=== PATIENT | female | born 1980 | race American Indian/Alaskan Native ===

== ENCOUNTER 2022-03-27 21:07 | Emergency (ER) | payer OTHER ==
[2022-03-27] MEDS ORDERED: IBUPROFEN 600 MG TAB PO ONE (23:21)
[2022-03-27] MEDS ORDERED: ACETAMINOPHEN 500 MG TAB PO ONE (23:21)
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
[2022-03-28 01:31] VITALS: BP 111/56
== END 2022-03-28 01:02 | disposition home or self-care (01) ==
LOC: ED 21:07
DX: G44.86 Cervicogenic headache (principal); M62.838 Other muscle spasm; Z91.048 Other nonmedicinal substance allergy status; V89.2XXA Person injured in unspecified motor-vehicle accident, traffic, initial encounter; Y93.89 Activity, other specified; Y92.89 Other specified places as the place of occurrence of the external cause; Y99.8 Other external cause status
CPT/HCPCS: 70450; 72125; 99283